=== PATIENT | male | born 1955 | race Caucasian/White ===

== ENCOUNTER 2022-04-19 13:19 | Inpatient (IN) | payer OTHER ==
[~2022-04-19] VITALS: Ht 190.5 cm; Wt 93.0 kg
--- NOTE | 2022-04-19 13:46 | NUR ---
DR THIBODEAUX AT BEDSIDE FOR EVALUATION
[2022-04-19] MEDS ORDERED: IBUPROFEN 600 MG TABLET PO ONE (14:30)
[2022-04-19 14:40] LABS: HEMATOCRIT 38.3 % (36.7-47.1); MEAN CORPUSCULAR HEMOGLOBIN 31.7 uug (23.8-33.4); MEAN CORPUSCULAR VOLUME 91.5 fL (73.0-96.2); PLATELET COUNT (AUTO) 123 K/uL (152-348)
[2022-04-19] MEDS ORDERED: IBUPROFEN 600 MG TABLET ONE (14:40)
[2022-04-19 14:48] LABS: BILIRUBIN,DIRECT 0.2 mg/dL (0.0-0.2); BILIRUBIN,TOTAL 0.8 mg/dL (0.2-1.0); CREATININE 1.3 mg/dL (0.6-1.3); POTASSIUM 3.9 mmol/L (3.5-5.1); TOTAL PROTEIN, SERUM 6.6 g/dL (6.4-8.2)
--- NOTE | 2022-04-19 14:57 | NUR ---
Lactic acid of 2.3 Dr. Quinones aware.
[2022-04-19] MEDS ORDERED: IV NORMAL SALINE 1000 ML BAG IV ONE (15:00)
[2022-04-19] MEDS ORDERED: PIPERACILLIN SODIUM/TAZOBACTAM 3.375 G in IV DEXTROSE 5% 50 ML IV ONE (15:30)
[2022-04-19] MEDS ORDERED: PIPERACILLIN/TAZOBACTAM/D5W 50 ML IV ONE (15:36)
--- NOTE | 2022-04-19 19:30 | NUR ---
A>Pt's airway is patent, speaking in full sentences with notable hoarseness. B>No respiratory distress. Equal rise and fall of chest wall, and with no retractions. Assisted to a gown. C> No CP, able to drink regularly and with good urine output. Maintaining own fluid balance. No edema. Capp reill <2 secs. D>GCS 15/15. Bs check taken by pt is 206mg/dl. Last meal was at 10am this AM. Food tray provided. E>Pt is ambulatory. Pressure sites intact. Assisted pt to a gown, and provided with non-slip socks and warm blankets.
--- NOTE | 2022-04-19 19:30 | NUR ---
D> Pt has insulin pump on RLQ.
--- NOTE | 2022-04-20 07:31 | NUR ---
report given to sergio/ nikia ROBERTSON.
--- NOTE | 2022-04-20 09:30 | NUR ---
Pt. restingin bed, no complaints, no distress noted. Gave pt breakfast tray.
--- NOTE | 2022-04-20 09:45 | NUR ---
Pt self-BG test was 264. Pt set his pump for 53 "units of carbs."
[2022-04-20] MEDS ORDERED: ONDANSETRON 4 MG/2 ML VIAL IV PRN (10:00)
[2022-04-20] MEDS ORDERED: DEXTROSE 50% 50 ML DISP.SYRIN IV PRN (10:00)
[2022-04-20] MEDS ORDERED: MORPHINE SULFATE 2 MG/1 ML DISP.SYRIN IV PRN (10:00)
[2022-04-20] MEDS ORDERED: MAGNESIUM HYDROXIDE 30 ML LIQUID UDC PO PRN (10:00)
[2022-04-20] MEDS ORDERED: INSULIN REGULAR, HUMAN 300 UNITS/3 ML VIAL SQ PRN (10:00)
[2022-04-20 10:25] LABS: HEMATOCRIT 40.4 % (36.7-47.1); MEAN CORPUSCULAR HEMOGLOBIN 31.7 uug (23.8-33.4); MEAN CORPUSCULAR VOLUME 92.4 fL (73.0-96.2); PLATELET COUNT (AUTO) 111 K/uL (152-348)
[2022-04-20 10:43] LABS: CREATININE 1.1 mg/dL (0.6-1.3); MAGNESIUM 1.5 mg/dL (1.8-2.4); PHOSPHOROUS 2.4 mg/dL (2.5-4.9); POTASSIUM 4.3 mmol/L (3.5-5.1); TOTAL PROTEIN, SERUM 6.6 g/dL (6.4-8.2)
--- NOTE | 2022-04-20 10:50 | NUR ---
Called report to AILYN Khan.
[2022-04-20 10:51] LABS: THYROID STIMULATING HORMONE 0.627 mIU/mL (0.358-3.740)
[2022-04-20] MEDS ORDERED: INSULIN REGULAR, HUMAN 300 UNIT/3 ML VIAL SQ PRN (11:30)
[2022-04-20 11:40] VITALS: BP 159/77
--- NOTE | 2022-04-20 11:42 | NUR ---
Admitted pt to [facility] dx covid-19 brought in via wc from ED. Alert and oriented x4, denies pain or sob c/o of coughing and secretions. Noted with mild congestion. Pleasant mood. On room air satting 96%. No skin breakdown noted. Pt has a built in insulin pump on RLQ that he states he regulates depending on his BS that he checks qid. Pt checked BS while at bedside noted 283mg/dl. No ss of hyperglycemia noted. Routine admission care done, belongings checked. Made comfortable. Call light in reach.
[2022-04-20] MEDS: BLOOD SUGAR DIAGNOSTIC 1 EACH STRIP VI SCH ×3 (11:48→20:55)
--- NOTE | 2022-04-20 12:05 | NUR ---
Bs 283 mg/dl. No coverage is given by this nurse. Pt has a built-in insulin pump.
[2022-04-20] MEDS ORDERED: GUAIFENESIN/CODEINE 5 ML LIQUID UDC PO PRN (14:00)
[2022-04-20] MEDS ORDERED: AZAT50TA18 PO (14:24)
[2022-04-20 16:48] VITALS: BP 143/71
--- NOTE | 2022-04-20 18:15 | NUR ---
Patient compliant with care. Intermittent coughing, some secretions. No sob noted. Denies pain. Cont to monitor.
[2022-04-20] MEDS ORDERED: ALBUTEROL SULFATE 2.5 MG/3 ML NEBU NEB PRN (18:30)
[2022-04-20] MEDS ORDERED: TEMAZEPAM 15 MG CAPSULE PO PRN (21:00)
--- NOTE | 2022-04-20 21:00 | NUR ---
BS 248mg/dl. COVERAGE NOT GIVEN PATIENT HAS A BUILT-IN INSULIN PUMP.
[2022-04-21 04:00] VITALS: BP 124/63
[2022-04-21 06:13] LABS: HEMATOCRIT 38.1 % (36.7-47.1); MEAN CORPUSCULAR HEMOGLOBIN 31.8 uug (23.8-33.4); MEAN CORPUSCULAR VOLUME 90.8 fL (73.0-96.2); PLATELET COUNT (AUTO) 114 K/uL (152-348)
[2022-04-21] MEDS: PANTOPRAZOLE SODIUM 40 MG TABLET.DR PO SCH (06:16)
[2022-04-21] MEDS: ACETAMINOPHEN 325 MG TABLET PO PRN (06:17)
--- NOTE | 2022-04-21 06:18 | NUR ---
PATIENT SLEPT THROUGH THE NIGHT. LOW GRADE FEVER AND COUGH NOTED, PATIENT GIVEN PRN TYLENOL AND ROBITUSSIN. IV ACCESS PATENT AND INTACT. SAFETY PRECAUTIONS MAINTAINED. CALL LIGHT WITHIN REACH.
[2022-04-21 06:46] LABS: CREATININE 0.9 mg/dL (0.6-1.3); MAGNESIUM 1.5 mg/dL (1.8-2.4); PHOSPHOROUS 2.9 mg/dL (2.5-4.9); POTASSIUM 3.7 mmol/L (3.5-5.1)
--- NOTE | 2022-04-21 09:00 | NUR ---
Awake, alert, oriented x 4. Room air O2 sat of 93%, with intermittent cough, no shortness of breath noted
[2022-04-21 09:24] VITALS: BP 128/70
[2022-04-21] MEDS: BLOOD SUGAR DIAGNOSTIC 1 EACH STRIP VI SCH ×4 (09:26→21:46)
[2022-04-21] MEDS ORDERED: MAGNESIUM OXIDE 400 MG TABLET PO ONE (09:30)
[2022-04-21] MEDS ORDERED: CEFTRIAXONE 1 G in IV DEXTROSE 5% 50 ML IV SCH (10:15)
[2022-04-21 11:15] VITALS: BP 110/68
--- NOTE | 2022-04-21 12:00 | NUR ---
BG 279. With Insulin pump and will dose himself according to BG and meal eaten.
[2022-04-21] MEDS: AZATHIOPRINE 50 MG TABLET PO SCH (12:07)
[2022-04-21] MEDS: CEFTRIAXONE 1 G in IV DEXTROSE 5% 50 ML IV SCH (12:08)
[2022-04-21 15:17] VITALS: BP 128/60
--- NOTE | 2022-04-21 18:40 | NUR ---
Room air with O2 sat of 94%. Afebrile
--- NOTE | 2022-04-21 19:30 | NUR ---
Patient alert oriented, no sob no chest pain, on room air, no complain of coughing noted, no fever at this time, cont to monitor.
[2022-04-21 20:25] VITALS: BP 128/59
--- NOTE | 2022-04-21 21:50 | NUR ---
Patient blood sugar 250... no insulin given, patient has insulin pump and he give himself dose of insulin per his MD, patient alert oriented, and well knowledgeable about his insulin pump and how much he's giving him. cont to monitor.
[2022-04-22 04:46] VITALS: BP 128/67
[2022-04-22] MEDS: PANTOPRAZOLE SODIUM 40 MG TABLET.DR PO SCH (05:39)
[2022-04-22] MEDS: BLOOD SUGAR DIAGNOSTIC 1 EACH STRIP VI SCH ×4 (05:39→21:39)
[2022-04-22] MEDS: AZATHIOPRINE 50 MG TABLET PO SCH (08:34)
[2022-04-22] MEDS: CEFTRIAXONE 1 G in IV DEXTROSE 5% 50 ML IV SCH (11:00)
[2022-04-22 12:00] VITALS: BP 111/75
--- NOTE | 2022-04-22 12:30 | NUR ---
PT BLOOD SUGAR 265 NO INSULIN COVERAGE. PT HAVE INSULIN PUMP AND ADMINISTERING HUMALOG BY HIMSELF.
--- NOTE | 2022-04-22 12:45 | NUR ---
NOTIFIED THE THE PT HAVE HIS OWN INSULIN PUMP. MD LANDEROS TO ASKED PT TO REMOVE HIS INSULIN PUMP.PT AGREED TO REMOVE HIS INSULIN PUMP. ORDERED MODERATE SLIDING SCALE AND ACCUCHECK ACHS
[2022-04-22 13:07] LABS: *BILIRUBIN,URIN NEGATIVE (NEGATIVE); *BLOOD, URINE NEGATIVE (NEGATIVE); *CLARITY,URINE CLEAR (CLEAR); *COLOR,URINE YELLOW (YELLOW); *KETONES,URINE 2+ (NEGATIVE); *UROBILINOGEN,URINE 0.2 E.U./dl (NORMAL); LEUKOCYTE ESTERASE ,URINE NEGATIVE (NEGATIVE); NITRITE, URINE NEGATIVE (NEGATIVE); PH,URINE 5.5 (5.0-8.0); UGLUCOSE 2+ (NEGATIVE)
[2022-04-22] MEDS ORDERED: DEXTROSE 50% 50 ML DISP.SYRIN IV PRN (13:45)
[2022-04-22 13:47] LABS: SQUAMOUS EPITHELIAL CELL,UR FEW /HPF (NONE SEEN)
[2022-04-22 14:08] LABS: WBC,URINE 0-3 /HPF (0-3)
[2022-04-22 14:09] LABS: BACTERIA,URINE NONE SEEN /HPF (NONE SEEN)
[2022-04-22 14:12] LABS: RBC,URINE NONE SEEN /HPF (0-3)
[2022-04-22] MEDS ORDERED: FLUCONAZOLE 100 MG TABLET PO SCH (15:00)
[2022-04-22 16:00] VITALS: BP 121/69
[2022-04-22] MEDS ORDERED: BLOOD SUGAR DIAGNOSTIC 1 EACH STRIP VI PRN (17:00)
[2022-04-22] MEDS: INSULIN REGULAR, HUMAN 300 UNITS/3 ML VIAL SQ PRN ×2 (17:48→21:45)
--- NOTE | 2022-04-22 18:45 | NUR ---
PT BLOOD SUGAR 258. GAVE HUMULIN R 6 UNITS
--- NOTE | 2022-04-22 18:45 | NUR ---
PT JUST RESTING ON BED. NO ACUTE DISTRESS NOTED. WILL ENDORSED TO NOC SHIFT
--- NOTE | 2022-04-22 19:30 | NUR ---
Received pt in no acute distress. Iv intact. Pt on room air. Pt can make his needs known.Safety and comfort provided. Will continue to monitor.
[2022-04-22 20:00] VITALS: BP 137/72
[2022-04-22] MEDS: ACETAMINOPHEN 325 MG TABLET PO PRN (20:55)
[2022-04-23] MEDS: BLOOD SUGAR DIAGNOSTIC 1 EACH STRIP VI SCH ×2 (06:37→12:15)
[2022-04-23] MEDS: PANTOPRAZOLE SODIUM 40 MG TABLET.DR PO SCH (06:37)
--- NOTE | 2022-04-23 06:42 | NUR ---
Pt in no acute distress. Iv intact. Prescribed medication given and pt tolerated it well. Pt blood sugar was 295.Safety and comfort provided.All needs are met. Vital signs within normal limit. Pt on room air. Will endorse to incoming nurse.
[2022-04-23] MEDS: INSULIN REGULAR, HUMAN 300 UNIT/3 ML VIAL SQ PRN ×2 (07:51→12:16)
--- NOTE | 2022-04-23 08:00 | NUR ---
Received pt in the morning in bed, no distress, no pain, no COVID+ symptoms.
[2022-04-23] MEDS: AZATHIOPRINE 50 MG TABLET PO SCH (09:28)
[2022-04-23 11:00] VITALS: BP 128/65
--- NOTE | 2022-04-23 12:30 | NUR ---
Patient is getting DC but still COVID positive. Would like to go home, Doctor Roni Ok for DC. Patient stable
== END 2022-04-23 13:20 | disposition home or self-care (01) | DRG 871 ==
LOC: ER 13:19 → MEDSURG3 04-20 10:48
PROVIDERS: ADMIT Internal Medicine
DX: A41.89 Other specified sepsis (principal); J12.82 Pneumonia due to coronavirus disease 2019; N17.0 Acute kidney failure with tubular necrosis; U07.1 COVID-19; D84.9 Immunodeficiency, unspecified; E87.2 Acidosis; K74.60 Unspecified cirrhosis of liver; Z79.899 Other long term (current) drug therapy; E10.9 Type 1 diabetes mellitus without complications; Z87.891 Personal history of nicotine dependence; Z96.41 Presence of insulin pump (external) (internal)
CPT/HCPCS: 36415; 71045; 83605; 83735; 84100; 84443; 85025; 87040; 87086; 87400; A4663; G0378; J0696; J1815; J2543; J7040; J7500